=== PATIENT | male | born 1955 | race Caucasian/White ===

== ENCOUNTER 2016-12-08 22:46 | Inpatient (IN) | payer BC ==
[2016-12-08 23:54] LABS: HEMOGLOBIN 18.3 gm/dl (14.0-17.5); RED BLOOD COUNT 5.88 M/UL (4.20-5.50); WHITE BLOOD COUNT 10.6 K/UL (4.5-11.0)
[2016-12-09 00:20] LABS: BUN/CREATININE RATIO 13 (0-10)
[2016-12-09] MEDS ORDERED: QUETIAPINE FUMA50 MG PO (04:00)
[2016-12-09] MEDS ORDERED: TESTOSTERO200 MG/11 IM (04:01)
[2016-12-09] MEDS ORDERED: NEURONTIN 300300 MG PO (04:01)
[2016-12-09] MEDS ORDERED: CITALOPRAM HBR40 MG PO (04:02)
[2016-12-10 06:22] LABS: HEMOGLOBIN 16.3 gm/dl (14.0-17.5); RED BLOOD COUNT 5.24 M/UL (4.20-5.50)
[2016-12-10 07:01] LABS: BUN/CREATININE RATIO 14 (0-10)
[2016-12-12 04:53] LABS: HEMOGLOBIN 16.7 gm/dl (14.0-17.5); RED BLOOD COUNT 5.42 M/UL (4.20-5.50); WHITE BLOOD COUNT 9.1 K/UL (4.5-11.0)
[2016-12-12 05:10] LABS: BUN/CREATININE RATIO 14 (0-10)
[2016-12-13 05:07] LABS: HEMOGLOBIN 17.1 gm/dl (14.0-17.5); RED BLOOD COUNT 5.52 M/UL (4.20-5.50); WHITE BLOOD COUNT 8.8 K/UL (4.5-11.0)
[2016-12-13 05:35] LABS: BUN/CREATININE RATIO 16 (0-10)
[2016-12-14 05:01] LABS: BUN/CREATININE RATIO 17 (0-10)
== END 2016-12-15 17:50 | DRG 65 ==
LOC: ER1 22:46 → M/S 12-09 01:18 → ZEROF 12-09 01:18 → M/S 12-09 03:23 → CCU 12-09 13:19 → M/S 12-14 22:08
PROVIDERS: Emergency Medicine; Family Medicine; Physician Assistant; ADMIT Internal Medicine
DX: I63.112 Cerebral infarction due to embolism of left vertebral artery (principal); G81.91 Hemiplegia, unspecified affecting right dominant side; I10 Essential (primary) hypertension; R00.1 Bradycardia, unspecified; E86.0 Dehydration; D75.1 Secondary polycythemia; E83.42 Hypomagnesemia; R13.10 Dysphagia, unspecified; H53.2 Diplopia; T38.7X5A Adverse effect of androgens and anabolic congeners, initial encounter; R27.0 Ataxia, unspecified; R42 Dizziness and giddiness; E66.9 Obesity, unspecified; E29.1 Testicular hypofunction; M19.90 Unspecified osteoarthritis, unspecified site; G89.29 Other chronic pain; M54.9 Dorsalgia, unspecified; G47.00 Insomnia, unspecified; R29.701 NIHSS score 1; R40.2412 Glasgow coma scale score 13-15, at arrival to emergency department; F17.200 Nicotine dependence, unspecified, uncomplicated; J32.0 Chronic maxillary sinusitis; H55.00 Unspecified nystagmus; F32.9 Major depressive disorder, single episode, unspecified; F41.9 Anxiety disorder, unspecified; Z68.34 Body mass index [BMI] 34.0-34.9, adult; Z79.899 Other long term (current) drug therapy; Z88.8 Allergy status to other drugs, medicaments and biological substances; Z98.890 Other specified postprocedural states; Z82.49 Family history of ischemic heart disease and other diseases of the circulatory system
CPT/HCPCS: ECHO; 36415; 70450; 70544; 70551; 70553; 71010; 74230; 80048; 80053; 80061; 82550; 82553; 83036; 83735; 83874; 84443; 84484; 85025; 85027; 92526; 92610; 92611-GN; 93005; 93306; 93880; 96361; 96374; 96375; 97110; 97116; 97530; 99285; A9577; J1650; J2405; J2550; J7030; J7050

== ENCOUNTER → 2017-06-18 | Outpatient (CLI) | payer BC ==
[~2017-06-18] MED LIST: CITALOPRAM HBR40 MG PO; NEURONTIN 300300 MG PO; QUETIAPINE FUMA50 MG PO; TESTOSTERO200 MG/11 IM
== END ==
LOC: KOH-I 15:04
DX: M54.9 Dorsalgia, unspecified (principal); J40 Bronchitis, not specified as acute or chronic; F17.200 Nicotine dependence, unspecified, uncomplicated; M51.34 Other intervertebral disc degeneration, thoracic region; M47.896 Other spondylosis, lumbar region; M50.30 Other cervical disc degeneration, unspecified cervical region; R91.8 Other nonspecific abnormal finding of lung field
CPT/HCPCS: 71020; 72050; 72070; 72110

== ENCOUNTER → 2021-01-24 | Outpatient (CLI) | payer BC, OTHER ==
[~2021-01-24] MED LIST changes: +PREDNISONE 20 M20 MG PO
== END ==
LOC: EXRD 08:26
DX: R10.11 Right upper quadrant pain (principal); K76.0 Fatty (change of) liver, not elsewhere classified
CPT/HCPCS: 76705

== ENCOUNTER → 2021-10-30 | Outpatient (CLI) | payer BC | LOC: CT 10-10 10:30 | DX: R10.11 Right upper quadrant pain (principal) | CPT/HCPCS: 36415; 74160; 82565; 84520; Q9967 ==

== ENCOUNTER → 2022-01-16 | Outpatient (CLI) | payer BC | LOC: RAD 12:26 | DX: J20.9 Acute bronchitis, unspecified (principal); R05.9 Cough, unspecified | CPT/HCPCS: 71046 ==

== ENCOUNTER → 2022-04-20 | Outpatient (CLI) | payer BC | LOC: KOH-I 09:30 | DX: F17.210 Nicotine dependence, cigarettes, uncomplicated (principal) | CPT/HCPCS: 71271 ==